=== PATIENT | female | born 1960 | race Caucasian/White ===

== ENCOUNTER 2017-02-26 09:18 | Day surgery (SDC) | payer OTHER ==
[~2017-02-26] VITALS: Ht 167.6 cm; Wt 94.5 kg
[~2017-02-26 09:18] MED LIST: DIPH-654 PO; ENAL10TA PO; FERR-82 PO; MILK175C4 PO; MULT1TAB70 PO; PANT40TA25 PO; PARO-66 PO; SIMV-261 PO; SODIUM CHLORIDE 0.9% 1,000 ML IV ONE
[2017-02-26] MEDS ORDERED: SODIUM CHLORIDE 0.9% 1,000 ML IV ONE (10:02)
[2017-02-26] MEDS ORDERED: OXYGEN THERAPY IH SCH (20:00)
== END 2017-02-26 11:25 | disposition home or self-care (01) ==
LOC: SURGERY 09:18
PROVIDERS: ATTEND Specialist
DX: K64.1 Second degree hemorrhoids (principal); I10 Essential (primary) hypertension; E78.00 Pure hypercholesterolemia, unspecified; K21.0 Gastro-esophageal reflux disease with esophagitis; M19.90 Unspecified osteoarthritis, unspecified site; D64.9 Anemia, unspecified
CPT/HCPCS: 45350; J7030

== ENCOUNTER 2019-01-26 10:55 | Day surgery (SDC) | payer OTHER ==
[~2019-01-26] VITALS: Ht 168.9 cm; Wt 93.6 kg
[~2019-01-26 10:55] MED LIST changes: -MILK175C4 PO; +MILK175C5 PO
[2019-01-26] MEDS ORDERED: LIDOCAINE/PF 2% 5 ML SYRINGE IVP ONE (10:56)
[2019-01-26] MEDS ORDERED: PROPOFOL 1% 20 ML VIAL IVP ONE (10:56)
[2019-01-26 11:45] LABS: GLUCOMETER DEV NAME(LOC) SDS.; GLUCOSE,POINT OF CARE 93 MG/DL (70-110)
[2019-01-26] MEDS ORDERED: OXYGEN THERAPY IH SCH (20:00)
== END 2019-01-26 14:05 | disposition home or self-care (01) ==
LOC: SURGERY 10:55
PROVIDERS: ATTEND Specialist
DX: K62.5 Hemorrhage of anus and rectum (principal); K64.1 Second degree hemorrhoids; E78.00 Pure hypercholesterolemia, unspecified; I10 Essential (primary) hypertension; F32.9 Major depressive disorder, single episode, unspecified; E66.01 Morbid (severe) obesity due to excess calories; Z68.32 Body mass index [BMI] 32.0-32.9, adult; Z87.19 Personal history of other diseases of the digestive system; Z79.899 Other long term (current) drug therapy
CPT/HCPCS: 45350; 82962; J2704; J3490; J7030